=== PATIENT | female | born 1945 | race Caucasian/White ===

== ENCOUNTER 2021-11-18 07:56 | Day surgery (SDC) | payer OTHER ==
[~2021-11-18] VITALS: Ht 150 cm; Wt 67.1 kg
[2021-11-18] MEDS: LACTATED RINGERS 1,000 ML IV SCH (01:30)
[2021-11-18] MEDS ORDERED: CLINDAMYCIN 600 MG in DEXTROSE 5% 50 ML IV SCH (09:06)
[2021-11-18 09:15] LABS: BASOPHILS # (AUTO) 0.1 K/uL (0.00-0.22); BASOPHILS % (AUTO) 0.2 % (0.0-2.0); EOSINOPHILS # (AUTO) 0.2 K/uL (0-0.4); EOSINOPHILS % (AUTO) 0.5 % (0.0-4.0); HEMOGLOBIN 13.3 g/dL (12.0-16.0); LYMPHOCYTES # (AUTO) 0.2 K/uL (2.5-16.5); LYMPHOCYTES % (AUTO) 0.6 % (20.5-51.1); MEAN CORPUSCULAR HEMOGLOBIN 31 pg (27-31); MEAN CORPUSCULAR HGB CONC 33 g/dL (33-37); MEAN CORPUSCULAR VOLUME 93.1 fL (80-94); MONOCYTES # (AUTO) 0.2 K/uL (0.8-1.0); MONOCYTES % (AUTO) 0.5 % (1.7-9.3); NEUTROPHILS # (AUTO) 39.1 K/uL (1.8-7.7); NEUTROPHILS % (AUTO) 98.2 % (42.2-75.2); PLATELET COUNT (AUTO) 202 K/uL (140-450); RED CELL DISTRIBUTION WIDTH 13.1 % (11.6-13.7)
[2021-11-18 09:29] LABS: PROTHROMBIN TIME 11.4 secs (10.8-13.4)
[2021-11-18 09:32] LABS: WHITE BLOOD COUNT (AUTO) 39.9 K/uL (4.8-10.8)
[2021-11-18 09:36] LABS: ALBUMIN 3.4 g/dL (3.4-5.0); ASPARTATE AMINOTRANSFERASE 30 U/L (15-37); CARBON DIOXIDE 26.1 mmol/L (21-32); CHLORIDE 99 mmol/L (98-107); CREATININE 1.4 mg/dL (0.6-1.3); GLUCOSE 125 mg/dL (74-106); POTASSIUM 4.1 mmol/L (3.5-5.1); SODIUM SERUM 136 mmol/L (136-145); TOTAL BILIRUBIN 0.5 mg/dL (0.0-1.0); UREA NITROGEN, BLOOD 25 mg/dL (7-18)
[2021-11-18] MEDS ORDERED: fentaNYL citrate 0.05 MG/ML VIAL ONE ×2 (10:39→19:01)
[2021-11-18] MEDS ORDERED: BUPIVACAINE-MPF 0.25% 30 ML VIAL INJ ONE (18:58)
[2021-11-18] MEDS ORDERED: LIDOCAINE 1% 500 MG/50 ML VIAL ONE (18:59)
[2021-11-18] MEDS ORDERED: LIDOCAINE MPF 1% 5 ML ONE (18:59)
[2021-11-18] MEDS ORDERED: DEXAMETHASONE 4 MG/ML VIAL ONE (19:01)
[2021-11-18] MEDS ORDERED: ONDANSETRON 4 MG/2 ML VIAL ONE (19:01)
[2021-11-18] MEDS ORDERED: PROPOFOL 200 MG/20 ML VIAL IV ONE (19:01)
[2021-11-18] MEDS ORDERED: DESFLURANE 240 ML BTL INH ONE (19:17)
[2021-11-18] MEDS ORDERED: ACETAMINOPHEN 100 ML IV ONE (21:23)
[2021-11-18] MEDS ORDERED: traMADol 50 MG TAB PO PRN (22:15)
[2021-11-18] MEDS ORDERED: ONDANSETRON 4 MG/2 ML VIAL IVP PRN (22:25)
--- NOTE | 2021-11-18 23:10 | NUR ---
RECEIVED PT FROM RECOVERY ROOM S/P LEFT FOOT BUNIONECTOMY, LEFT LEG DRESSING WITH WILFRID WRAP IN PLACE, NO SIGNS OF BLEEDING, PT AAOX4, ABLE TO MAKE NEEDS KNOWN, DENIES ANY PAIN, VITAL SIGNS TAKEN PER PROTOCOL, INITIAL VITAL SIGNS FOLLOW:BP-90/49, HR-83, TEMP-97.3, RR-18, SAT-96%, PROVIDED WITH APPLE JUICE AND CRACKERS, TOLERATED WELL, IVF OF LR INFUSING WELL, FAMILY AT BEDSIDE.
[2021-11-18 23:15] VITALS: BP 90/49
[2021-11-18 23:45] VITALS: BP 84/39
[2021-11-18] MEDS ORDERED: NACL 0.9% 500 ML IV SCH (23:45)
[2021-11-19 01:00] VITALS: BP 92/51
--- NOTE | 2021-11-19 01:40 | NUR ---
PT VOIDED FREELY PER BEDPAN, DENIES ANY PAIN, IVF INFUSING WELL, MONITORED CLOSELY.
--- NOTE | 2021-11-19 03:50 | NUR ---
PT SLEEPING, VITAL SIGNS TAKEN, BP-88/54,HR-75, PT AWOKEN, RECHECKED VITAL SIGNS, BP-97/56, HR-Y3, SAT-97% ON 2L O2, DENIES ANY PAIN, PT WENT BACK TO SLEEP, MONITORED CLOSELY.
[2021-11-19 04:00] VITALS: BP 97/56
--- NOTE | 2021-11-19 06:30 | NUR ---
PT INCONTINENT OF URINE, CLEANED AND REPOSITIONED, IV SITE INFILTRATED, NEW IV SITE INSERTED TO RT FOREARM WITH GOOD BLOOD RETURN, CONTINUE IVF OF LR AT 100ML/H, DENIES ANY PAIN, NO SOB NOTED, MONITORED CLOSELY.
[2021-11-19] MEDS: LACTATED RINGERS 1,000 ML IV SCH (06:58)
--- NOTE | 2021-11-19 07:18 | NUR ---
PT SLEEPING, EASILY AROUSABLE, VERBALLY RESPONSIVE, LATEST BP IS 101/47, NO SIGNS OF DISTRESS, LEFT LEG DRESSING DRY AND INTACT, BEDSIDE REPORT GIVEN TO RN TOO FOR CONTINUITY OF CARE
--- NOTE | 2021-11-19 07:20 | NUR ---
RECEIVED REPORT FROM CLOTH BOLT BANDER NURSE FOR CONTINUITY OF CARE. PT ASLEEP IN BED, EASILY AROUSABLE. ON O2 2L VIA NC, BREATHING SYMMETRICAL. PER REPORT PT HAS EPISODES OF LOW BP. HAS DRESSING ON LEFT LEG EXTENDING TO TOE, S/P LEFT FOOT BUNIONECTOMY AND HAMMERTOE CORRECTION YESTERDAY. RFA 22G WITH LR AT 100CC/HR. FLACC O. PT FOR POSSIBLE DISCHARGE TODAY PER REPORT. CALL LIGHT WITHIN REACH. ALL SAFETY MEASURES IN PLACE.
[2021-11-19 08:00] VITALS: BP 105/45
[2021-11-19 10:19] VITALS: BP 105/45
--- NOTE | 2021-11-19 10:23 | NUR ---
CALLED DAUGHTER BEV, DAUGHTER ON THE WAY TO [employer] COUNSELOR PT
--- NOTE | 2021-11-19 10:50 | NUR ---
DAUGHTER AT BEDSIDE
--- NOTE | 2021-11-19 11:55 | NUR ---
PT DISCHARGED TO HOME WITH BELONGINGS AND PAPERWORKS, DISCHARGE INSTRUCTIONS PROVIDED TO PATIENT AND DAUGHTER AND VERBALIZED UNDERSTANDING. IV LINE REMOVED WITH CATHETER INTACT, NO BLEEDING NOTED.
== END 2021-11-19 11:55 | disposition home or self-care (01) ==
LOC: MDS 07:56 → MMU 07:56 → MTU 23:58 → MDS 11-19 11:55
PROVIDERS: ATTEND Podiatrist Foot & Ankle Surgery
DX: M21.612 Bunion of left foot (principal); M20.42 Other hammer toe(s) (acquired), left foot; K21.9 Gastro-esophageal reflux disease without esophagitis; I10 Essential (primary) hypertension; Z88.0 Allergy status to penicillin; Z79.01 Long term (current) use of anticoagulants; Z79.899 Other long term (current) drug therapy
CPT/HCPCS: 28285; 28299; 36415; 71045; 73620; 80053; 85025; 85610; 85730; 93005; C1713; J1100; J2001; J2405; J2704; J3010; J3490; J7060